=== PATIENT | male | born 1990 | race African-American/Black ===

== ENCOUNTER 2021-01-12 20:41 | Emergency (ER) | payer OTHER ==
[2021-01-12] MEDS ORDERED: DOXYCYCLINE 100 MG TABLET PO STA (21:18)
[2021-01-12] MEDS ORDERED: cefTRIAXone 250 MG VIAL IM STA (21:18)
[2021-01-12] MEDS ORDERED: LIDOCAINE 1% 2 ML VIAL MC ONE (21:18)
--- NOTE | 2021-01-12 21:19 | ED Physician Documentation ---
History of Present Illness - Stated complaint Stated Complaint: MALE - Chief complaint Chief Complaint: General - History obtained from History obtained from: Patient (Notified today by recent sexual partner that she is positive for chlamydia. He does have mild dysuria.) Review of Systems Constitutional: denies: Fever, Chills Throat: denies: Sore throat GI: reports: Reviewed and negative PD PAST MEDICAL HISTORY - Present Medications Home Medications: Ambulatory Orders Medication Instructions Recorded Confirmed Doxycycline Hyclate 100 mg PO BID #14 01/12/21 - Allergies Allergies/Adverse Reactions: Allergies Allergy/AdvReac Type Severity Reaction Status Date / Time No Known Drug Allergies Allergy Verified 01/12/21 20:45 PD ED PE NORMAL - Vitals Vital signs reviewed: Yes - General General: Alert and oriented X 3, No acute distress - Back Back: No CVA TTP, No spinal TTP - Derm Derm: Normal color, Warm and dry - Extremities Extremities: No edema, No calf tenderness / cord - Neuro Neuro: Alert and oriented X 3, Normal speech Results - Vitals Vitals: Vital Signs - 24 hr 01/12/21 20:43 Temperature 36.7 C Heart Rate 70 Respiratory 16 Rate Blood Pressure 114/81 H O2 Saturation 100 Oxygen O2 Source Room air Departure - Departure Disposition: 01 Home, Self Care Clinical Impression: Urethritis Condition: Good Record reviewed to determine appropriate education?: Yes Instructions: ED STD Male Treated Prescriptions: Doxycycline Hyclate 100 mg PO BID #14 Comments: Try to stay out of the sun while on the antibiotics. Return for new or w orsening symptoms. Any other sexual partner should be tested and treated as well.
[2021-01-12 21:56] VITALS: BP 115/78
== END 2021-01-12 21:55 | disposition home or self-care (01) ==
LOC: ED 20:41
DX: N34.2 Other urethritis (principal); Z20.2 Contact with and (suspected) exposure to infections with a predominantly sexual mode of transmission
CPT/HCPCS: 99283; A9270

== ENCOUNTER 2022-01-24 12:11 | Outpatient (CLI) | payer SELFPAY | END 2022-01-24 12:12 | disposition home or self-care (01) | LOC: LAB 12:11 | DX: Z01.89 Encounter for other specified special examinations (principal) | CPT/HCPCS: 36415 ==